=== PATIENT | female | born 1975 | race Caucasian/White ===

== ENCOUNTER 2025-02-08 13:59 | Emergency (ER) | payer BC, SELFPAY ==
[2025-02-08] VITALS (58 sets, daily range): BP systolic 118–174; BP diastolic 77–117; PULSE 60–93; RESP 6–59; TEMP 36.2; O2SAT 90–100; BMI 30.4
--- NOTE | 2025-02-08 14:17 | ED.CHESTPAIN ---
HPI - Chest Pain General Time Seen by Provider: 14:17 Date Seen: 02/08/25 Chief Complaint: Chest Pain Stated Complaint: Chest Pains, Previous RASCON this yr Time Seen by Provider: 02/08/25 14:01 Source: patient and RN notes reviewed Mode of arrival: ambulatory Limitations: no limitations History of Present Illness HPI narrative: This 49-year-old female is coming in with chest discomfort radiating to her jaw. She was shoveling snow this morning and developed a chest pressure feeling, stating it felt like an elephant sitting on her chest. She checked her blood pressure after that, it was elevated at 154/104. She has had a history of an AZ in August and had 2 cardiac stents placed, this was at [facility]. Her symptoms are similar but not as severe as her heart attack. She is not aware if they had any other concerns with other vessels that were stenosis to. She has been on aspirin, did take an 81 mg aspirin this morning. She is still on her anti-platelet agent of Brilinta, has been taking it, no missed doses. She initially told nursing staff she thought the episode started around 11:00 a.m. but in retrospect she notes she texted her daughter who is in OT, this was around 9:30 a.m. this morning. Her symptoms are not as prominent as they were but they are still present. She did have a mild headache this morning, took Tylenol this morning when she got up. She does not smoke. Her medications are reviewed. Her dad from a heart attack at age 45. MD complaint: chest pain, chest heaviness and chest discomfort Related Data Home Medications ?Medication ?Instructions ?Recorded ?Confirmed aspirin 81 mg chewable tablet 81 mg PO DAILY 02/08/25 02/08/25 (Children's Aspirin) famotidine 40 mg tablet 40 mg PO HS 02/08/25 02/08/25 gabapentin 300 mg capsule 300 mg PO DAILY 02/08/25 02/08/25 metoprolol succinate 50 mg 50 mg PO DAILY 02/08/25 02/08/25 tablet,extended release 24 hr rosuvastatin 20 mg tablet (Crestor) 20 mg PO DAILY 02/08/25 02/08/25 ticagrelor 90 mg tablet (Brilinta) 90 mg PO BID 02/08/25 02/08/25 Allergies Allergy/AdvReac Type Severity Reaction Status Date / Time Sulfa (Sulfonamide Allergy Mild rash Verified 02/08/25 14:10 Antibiotics) Review of Systems Status of ROS Reports: 6 or more systems reviewed and unremarkable except as noted in History and below Exam Const Vital Signs, click to edit/add: Vital Signs - 24 hr 02/08/25 14:02 02/08/25 14:30 02/08/25 14:40 Temperature 97.1 F L Pulse Rate Pulse Rate [Pulse Oximeter] 69 Respiratory Rate 16 59 H Blood Pressure Blood Pressure [Right Upper Arm] 163/117 H Pulse Oximetry 98 97 Oxygen Delivery Method Room Air 02/08/25 14:44 02/08/25 14:45 02/08/25 14:48 Temperature Pulse Rate 79 70 93 Pulse Rate [Pulse Oximeter] Respiratory Rate 17 13 16 Blood Pressure 162/111 H 174/116 H Blood Pressure [Right Upper Arm] Pulse Oximetry 99 99 97 Oxygen Delivery Method 02/08/25 14:49 02/08/25 14:50 02/08/25 14:52 Temperature Pulse Rate 93 84 82 Pulse Rate [Pulse Oximeter] Respiratory Rate 15 13 22 Blood Pressure 158/104 H 151/106 H Blood Pressure [Right Upper Arm] Pulse Oximetry 98 98 97 Oxygen Delivery Method 02/08/25 14:53 02/08/25 14:57 02/08/25 15:00 Temperature Pulse Rate 79 73 71 Pulse Rate [Pulse Oximeter] Respiratory Rate 15 14 24 Blood Pressure 145/100 H Blood Pressure [Right Upper Arm] Pulse Oximetry 95 96 95 Oxygen Delivery Method 02/08/25 15:01 02/08/25 15:07 02/08/25 15:09 Temperature Pulse Rate 68 84 82 Pulse Rate [Pulse Oximeter] Respiratory Rate 19 16 19 Blood Pressure 142/94 H 156/111 H 145/102 H Blood Pressure [Right Upper Arm] Pulse Oximetry 95 99 99 Oxygen Delivery Method 02/08/25 15:10 02/08/25 15:12 02/08/25 15:15 Temperature Pulse Rate 81 71 71 Pulse Rate [Pulse Oximeter] Respiratory Rate 23 19 12 Blood Pressure 147/100 H Blood Pressure [Right Upper Arm] Pulse Oximetry 99 98 95 Oxygen Delivery Method 02/08/25 15:17 02/08/25 15:22 02/08/25 15:27 Temperature Pulse Rate 69 64 66 Pulse Rate [Pulse Oximeter] Respiratory Rate 15 9 L 11 L Blood Pressure 143/93 H 154/106 H 144/88 H Blood Pressure [Right Upper Arm] Pulse Oximetry 92 95 90 Oxygen Delivery Method 02/08/25 15:30 02/08/25 15:32 02/08/25 15:33 Temperature Pulse Rate 61 67 62 Pulse Rate [Pulse Oximeter] Respiratory Rate 20 6 L 8 L Blood Pressure 136/94 H Blood Pressure [Right Upper Arm] Pulse Oximetry 91 94 94 Oxygen Delivery Method 02/08/25 15:37 02/08/25 15:42 02/08/25 15:45 Temperature Pulse Rate 62 62 64 Pulse Rate [Pulse Oximeter] Respiratory Rate 9 L 11 L 15 Blood Pressure 138/103 H 128/83 Blood Pressure [Right Upper Arm] Pulse Oximetry 96 95 92 Oxygen Delivery Method 02/08/25 15:47 02/08/25 15:52 02/08/25 15:57 Temperature Pulse Rate 60 66 62 Pulse Rate [Pulse Oximeter] Respiratory Rate 12 11 L Blood Pressure 128/96 H 138/77 157/90 H Blood Pressure [Right Upper Arm] Pulse Oximetry 96 95 98 Oxygen Delivery Method 02/08/25 16:00 02/08/25 16:02 02/08/25 16:03 Temperature Pulse Rate 70 71 66 Pulse Rate [Pulse Oximeter] Respiratory Rate 7 L 15 19 Blood Pressure 150/97 H Blood Pressure [Right Upper Arm] Pulse Oximetry 96 96 97 Oxygen Delivery Method 02/08/25 16:07 02/08/25 16:12 02/08/25 16:18 Temperature Pulse Rate 73 73 Pulse Rate [Pulse Oximeter] Respiratory Rate 11 L 13 17 Blood Pressure 154/97 H 154/96 H Blood Pressure [Right Upper Arm] Pulse Oximetry 97 98 Oxygen Delivery Method 02/08/25 16:20 02/08/25 16:23 02/08/25 16:27 Temperature Pulse Rate 78 Pulse Rate [Pulse Oximeter] Respiratory Rate 20 19 17 Blood Pressure 118/99 H 170/107 H 171/78 H Blood Pressure [Right Upper Arm] Pulse Oximetry 100 Oxygen Delivery Method 02/08/25 16:32 02/08/25 16:37 02/08/25 16:42 Temperature Pulse Rate 73 74 Pulse Rate [Pulse Oximeter] Respiratory Rate 13 12 15 Blood Pressure 151/106 H 161/95 H 155/92 H Blood Pressure [Right Upper Arm] Pulse Oximetry 99 100 Oxygen Delivery Method 02/08/25 16:45 02/08/25 16:47 02/08/25 16:52 Temperature Pulse Rate 74 76 73 Pulse Rate [Pulse Oximeter] Respiratory Rate 19 11 L 17 Blood Pressure 147/105 H 144/115 H Blood Pressure [Right Upper Arm] Pulse Oximetry 98 98 96 Oxygen Delivery Method 02/08/25 16:57 02/08/25 17:00 02/08/25 17:02 Temperature Pulse Rate 74 74 69 Pulse Rate [Pulse Oximeter] Respiratory Rate 29 H 15 13 Blood Pressure 153/101 H 149/92 H Blood Pressure [Right Upper Arm] Pulse Oximetry 97 97 96 Oxygen Delivery Method 02/08/25 17:07 02/08/25 17:12 02/08/25 17:15 Temperature Pulse Rate 71 68 73 Pulse Rate [Pulse Oximeter] Respiratory Rate 16 23 18 Blood Pressure 132/87 139/90 H Blood Pressure [Right Upper Arm] Pulse Oximetry 97 95 95 Oxygen Delivery Method 02/08/25 17:17 02/08/25 17:18 02/08/25 17:22 Temperature Pulse Rate 69 73 79 Pulse Rate [Pulse Oximeter] Respiratory Rate 6 L 11 L 18 Blood Pressure 143/89 H 135/93 H Blood Pressure [Right Upper Arm] Pulse Oximetry 96 97 98 Oxygen Delivery Method 02/08/25 17:28 02/08/25 17:30 02/08/25 17:31 Temperature Pulse Rate 83 86 81 Pulse Rate [Pulse Oximeter] Respiratory Rate 25 H 17 14 Blood Pressure 132/88 137/91 H Blood Pressure [Right Upper Arm] Pulse Oximetry 96 93 96 Oxygen Delivery Method 02/08/25 17:32 Temperature Pulse Rate 88 Pulse Rate [Pulse Oximeter] Respiratory Rate 15 Blood Pressure Blood Pressure [Right Upper Arm] Pulse Oximetry 95 Oxygen Delivery Method This 49-year-old female is alert, interactive, no apparent distress. She is seen in exam room 5, lying in the bed and appears comfortable. Sclera clear, conjugate gaze, symmetrical facial function. Able to speak in complete sentences, no hoarseness. Neck supple, no jugular venous distension, no adenopathy or masses. Lungs are clear, good air entry, no wheezing or crackles, no tachypnea, no accessory muscle use. CV regular rate and rhythm, no murmur, normal S1-S2. Abdomen is soft, nontender, nondistended, no organomegaly, no rebound or guarding. She has no lower extremity edema. Patient was ambulatory into the ED of her own accord. Documenting provider has reviewed patient's vital signs: yes Course Course ED Course: Patient's symptoms are certainly concerning for coronary ischemia. We will get a highly sensitive troponin. If this episode happened around 930 this morning or before, would anticipate that her troponin would be elevated. Will also have nursing staff obtain an EKG, put her on cardiac monitoring and pulse oximetry. Will get appropriate labs which does include the highly sensitive troponin. I am going to give her 243 mg aspirin chewed, she did take 81 mg this morning. Will also try sublingual nitroglycerin to see if it does alleviate the rest of her symptoms. Will look at a portable chest x-ray as well. Reevaluation(s) Time of Reevaluation #1: 14:48 Reevaluation #1: Nursing staff reports after 1 sublingual nitroglycerin, patient feels her chest symptoms are worse. She feels a burning sensation. We are going to hold on subsequent nitroglycerin orally at this time, will have nursing staff cycle a blood pressure to see what happened with her blood pressure with the use of nitroglycerin. Her highly sensitive troponin should be back within minutes, will await this. Time of Reevaluation #2: 15:20 Reevaluation #2: Patient had called nursing staff in, was hyperventilating, stated her vision was starting to go black. Her nurse did try to get her to do some breathing, I did go in and talk to or after. She seems more settled now. We reviewed that her heart enzyme was normal. She did relate to me that after her stents replaced that she was placed on atorvastatin, felt terrible on that and was eventually switched to Crestor. For 2 weeks when she was off the Lipitor, she felt much better. In the last month and a half, she has been noticing chest pain going up stairs, muscle aches, brain fog, lack of energy. She has an appointment next week to see Dr. Thompson to review her symptoms. She also states that her blood pressure this past week has been elevated, systolics of 140s to 150s. They have been eating healthy, not eating out. She does tell me at this time her dad had a stroke before his heart attack. Reviewed with her that this is still vascular, hypertension, cholesterol within the family history can all play into these vascular issues. Did do a lab add on for CK but does not feel clinically like a myositis. We have discussed the extreme importance for her to be on a cholesterol medicine. Did review with her that there are other medicines, possibly even injectables that she might qualify for if she is intolerant to oral statins. I will talk to Cardiology to review her situation. Do wonder if maybe she should be started on losartan for blood pressure control as well. Will review these issues with Cardiology and her current symptoms. Time of Reevaluation #3: 15:57 Reevaluation #3: Have reviewed with patient I discussed with the senior animator. She is still having some chest symptoms, certainly not as bad as this morning or even with her prior AZ. She did not feel the chest discomfort going up stairs as she has last week after the initial angiogram and with side effects from the atorvastatin. Discussed with her recommendations transfer for further evaluation. Would consider this unstable angina. We will initiate ACS heparin and start IV nitroglycerin. It is possible she had some GI side effects with the sublingual nitroglycerin. Hopefully IV nitroglycerin is not going to cause any issues for her but we will continue to monitor. I did of julia Fagan call sherrell in the call center at [facility]. She will be getting the hospitalist on the line for final acceptance. Consultations Consultation #1: Have spoken with Cardiology Dr. Altman. If patient's symptoms are new, have not been ongoing since her stent placement, he would recommend re-evaluation. If she has ongoing chest symptoms, I am to start her on ACS heparin. I will be talking to the patient. He does tentatively accept. I have a direct number for the transfer center to call back. Did bring up her chest pain, her statin questions, her blood pressure issues. 4:[address] have spoken with Dr. Casillas hospitalist at [facility]. He accepts the patient. Time: 15:33 Vital Signs Vital signs: Initial Vital Signs Temperature 97.1 F L 02/08/25 14:02 Temperature Source Temporal Artery Scan 02/08/25 14:02 Pulse Rate 69 02/08/25 14:02 Respiratory Rate 16 02/08/25 14:02 Blood Pressure 163/117 H 02/08/25 14:02 Blood Pressure Mean 132 H 02/08/25 14:02 Blood Pressure Position Sitting 02/08/25 14:02 Pulse Oximetry 98 02/08/25 14:02 Oxygen Delivery Method Room Air 02/08/25 14:02 Vital Signs Temperature 97.1 F L 02/08/25 14:02 Pulse Rate 69 02/08/25 14:02 Respiratory Rate 16 02/08/25 14:02 Blood Pressure 163/117 H 02/08/25 14:02 Pulse Oximetry 98 02/08/25 14:02 Oxygen Delivery Method Room Air 02/08/25 14:02 Temperature 97.1 F L 02/08/25 14:02 Pulse Rate 88 02/08/25 17:32 Respiratory Rate 15 02/08/25 17:32 Blood Pressure 137/91 H 02/08/25 17:31 Pulse Oximetry 95 02/08/25 17:32 Oxygen Delivery Method Room Air 02/08/25 14:02 Medications Administered Medications: Discontinued Medications Generic Name Dose Route Start Last Admin Trade Name Kiq PRN Reason Stop Dose Admin Aspirin 243 mg 02/08/25 14:23 02/08/25 14:40 Aspirin 81 Mg Tab.Chew PO 02/08/25 14:24 243 mg ONCE ONE Administration Heparin Sodium (Porcine) 4,000 unit 02/08/25 15:59 02/08/25 16:32 Heparin 5,000 Unit/0.5 Ml Inj IVP 02/08/25 16:00 4,000 unit ONCE ONE Administration Heparin Sodium/Dextrose 25,000 unit in 500 mls @ 0 mls/hr 02/08/25 16:00 02/08/25 16:31 Heparin IV 950 unit/hr .Q0M PING 19 mls/hr Protocol Administration Per Protocol Nitroglycerin/Dextrose 25,000 mcg in 250 mls @ 3 mls/hr 02/08/25 16:00 02/08/25 17:18 Nitroglycerin/Dextrose IVPB 15 mcg/min .TITRATE PRN 9 mls/hr cp Infusion Protocol 5 MCG/MIN Nitroglycerin 0.4 mg 02/08/25 14:23 02/08/25 14:43 Nitroglycerin 0.4 Mg Tab.Subl SUBLINGUAL 0.4 mg Q5M PRN Administration MDM - Chest Pain Lab Data Attestation: I reviewed the patient's lab results. Labs: Lab Results 02/08/25 02/08/25 02/08/25 Range/Units 14:20 14:24 15:23 WBC 7.08 (4.50-11.00) K/uL RBC 4.62 (4.00-5.20) m/uL Hgb 13.3 (12.0-16.0) gm/dL Hct 41.3 (33.0-51.0) % MCV 89 (80-100) fL MCH 29 (26-34) pg MCHC 32 (32-36) gm/dL RDW Coeff of Christy 12.9 (11.5-15.5) % Plt Count 294 (140-440) K/uL Neut % (Auto) 63.8 (42.0-72.0) % Lymph % (Auto) 29.2 (20-44) % [place] % (Auto) 5.9 (0.0-11.0) % Eos % (Auto) 0.8 (0.0-7.0) % Baso % (Auto) 0.3 (0.0-3.0) % Neut # (Auto) 4.51 (1.7-7.0) K/uL Lymph # (Auto) 2.07 (0.90-2.90) K/uL [place] # (Auto) 0.40 (0.00-0.90) K/UL Eos # (Auto) 0.06 (0.00-0.50) K/uL Baso # (Auto) 0.02 (0.00-0.30) K/uL Abs Immat Gran (auto) 0.00 (0.00-0.30) K/uL Imm/Tot Granulo (auto) 0.0 % Sodium 140 (135-149) mmol/L Potassium 3.9 (3.6-5.1) mmol/L Chloride 101 (96-114) mmol/L Carbon Dioxide 26 (20-32) mmol/L Anion Gap 13 (7-15) mEq/L BUN 10 (5-24) mg/dL Creatinine 0.6 (0.5-1.5) mg/dL Estimated Creat Clear 94.85 Estimated GFR 111 ml/min Glucose 104 (60-115) mg/dL Calcium 10.0 (8.4-10.6) mg/dL Total Bilirubin 0.4 (0.1-1.5) mg/dL AST 22 (12-35) U/L ALT 23 (4-35) U/L Alkaline Phosphatase 87 (40-150) U/L Total Creatine Kinase 46 (41-117) U/L POC Troponin I High Sensi 4.3 (2.9-13.0) pg/mL C-Reactive Protein < 0.5 L (0.5-1.0) mg/dL NT-Pro-B Natriuret Pep 242 (See Note) pg/mL Total Protein 8.7 H (6.0-8.3) g/dL Albumin 5.2 H (3.3-5.0) g/dL Lab Acknowledgement Test Added Imaging Data Chest x-ray: Attestation: I have reviewed the pertinent imaging results. My impression: Have reviewed her chest x-ray, no acute pathology on my preliminary review. Radiologist's impression: Patient: SILVERIO COLLAZO Facility:?[facility] Patient ID:?[id number] Site Patient ID:?[id number]. Site :?[id number] Study:?XRay-Chest PORTABLE-02/08/2025 2:32:04 PM Ordering Physician:Mai Haskisn Final Report: INDICATION: Chest pain. Stents placed this summer. TECHNIQUE: Chest portable AP. Findings : The cardiomediastinal silhouette, lung parenchyma, pulmonary vasculature and pleural surfaces are all normal in appearance. The bony thorax appears intact. IMPRESSION: Negative study. Dictated by Timothy Chris MD @ 02/08/2025 2:51:17 PM (Electronic Signature) ECG Data Attestation: I personally reviewed and interpreted this ECG as follows: (Normal sinus rhythm, rate 65 beats per minute. No evidence infarct it or ischemia. QT corrected 399 milliseconds.) ECG interpretation date: 02/08/25 ECG interpretation time: 14:19 Prior ECG tracings: not available for review Discharge Plan Discharge Clinical Impression: Chest pain, Unstable angina pectoris Patient Disposition: Xfer [facility] Discharge Location: [facility] Prescriptions: No Action gabapentin 300 mg capsule 300 mg PO DAILY rosuvastatin [Crestor] 20 mg tablet 20 mg PO DAILY metoprolol succinate 50 mg tablet extended release 24 hr 50 mg PO DAILY famotidine 40 mg tablet 40 mg PO HS aspirin [Children's Aspirin] 81 mg tablet,chewable 81 mg PO DAILY ticagrelor [Brilinta] 90 mg tablet 90 mg PO BID Stand Alone Forms: [facility] Info Instructions
--- NOTE | 2025-02-08 14:23 | CRLHL7_ITS ---
For Patients: As a result of the Cures Act, medical imaging exams and procedure reports are released immediately into your electronic medical record. You may view this report before your referring provider. If you have questions, please contact your health care provider. INDICATION: Chest pain. Stents placed this summer. TECHNIQUE: Chest portable AP. Findings : The cardiomediastinal silhouette, lung parenchyma, pulmonary vasculature and pleural surfaces are all normal in appearance. The bony thorax appears intact. IMPRESSION: Negative study. Dictated by Timothy Chris MD @ 02/08/2025 2:51:17 PM (Electronically Signed)
[2025-02-08 14:32] LABS: Hematocrit* 41.3 % (33.0-51.0); Hemoglobin* 13.3 gm/dL (12.0-16.0); Immature Granulocytes Abs Auto 0.00 K/uL (0.00-0.30); Immature Granulocytes Pct Auto 0.0 %; Lymphocytes Absolute Auto 2.07 K/uL (0.90-2.90); Mean Corpuscular HGB Conc 32 gm/dL (32-36); Mean Corpuscular Hemoglobin 29 pg (26-34); Mean Corpuscular Volume 89 fL (80-100); RDW Coefficient of Variation % 12.9 % (11.5-15.5); Red Blood Count* 4.62 m/uL (4.00-5.20); White Blood Count* 7.08 K/uL (4.50-11.00)
[2025-02-08 14:33] LABS: Slide Review Reflex No
[2025-02-08] MEDS: ASPIRIN 81 MG TAB.CHEW 243 MG PO (14:40)
[2025-02-08] MEDS: NITROGLYCERIN 0.4 MG TAB.SUBL SUBLINGUAL (14:43)
[2025-02-08 14:45] LABS: Albumin* 5.2 g/dL (3.3-5.0); Chloride* 101 mmol/L (96-114); Sodium* 140 mmol/L (135-149)
[2025-02-08 14:46] LABS: Potassium* 3.9 mmol/L (3.6-5.1)
[2025-02-08 14:48] LABS: Alanine Aminotransferase* 23 U/L (4-35); Alkaline Phosphatase* 87 U/L (40-150); Anion Gap 13 mEq/L (7-15); Aspartate Amino Transferase* 22 U/L (12-35); Bilirubin Total* 0.4 mg/dL (0.1-1.5); Blood Urea Nitrogen* 10 mg/dL (5-24); Carbon Dioxide* 26 mmol/L (20-32); Creatinine* 0.6 mg/dL (0.5-1.5); Est. Creatinine Clearance* 94.85; Estimated Glomerular Filt Rate 111 ml/min; Total Protein* 8.7 g/dL (6.0-8.3)
[2025-02-08 14:49] LABS: Calcium* 10.0 mg/dL (8.4-10.6); Glucose* 104 mg/dL (60-115)
--- OUTSIDE RECORDS SUMMARY | 2025-02-08 14:50 | XMS_ITS | Clinical Summary ---
Author Organization [email or web address] Address [address] [place] [id number] Care Team Providers Care Party Plan Sales Unit Sales Leader Name Role Phone Vee Thompson Primary Care Provider [phone] Allergies Active Allergy Reactions Criticality Noted Date Comments Sulfa (Sulfonamide Antibiotics) Rash 10/04 Medications aspirin chewable 81 mg tabletIndications :NSTEMI (non-ST elevated myocardial infarction) (HC) Take 1 Tablet (81 mg) by mouth or nasogastric tube once daily. 90 Tablet 08/15/2024 9:40 AM CDT 5 Active ticagrelor 90 mg tabletIndications :NSTEMI (non-ST elevated myocardial infarction) (HC) Take 1 Tablet (90 mg) by mouth two times daily. 60 Tablet 11 08/15/2024 9:40 AM CDT 5 Active nitroglycerin 0.4 mg sublingual tabletIndications :NSTEMI (non-ST elevated myocardial infarction) (HC) Place 1 Tablet (0.4 mg) under the tongue every 5 minutes if needed for Chest pain 1st choice (Hold if SBP less than 90 mmHg). Up to 3 tablets in 15 minutes. 25 Tablet 08/15/2024 9:40 AM CDT 5 Active famotidine (PEPCID) 40 mg tabletIndications :Gastroesophageal reflux disease, unspecified whether esophagitis present Take 1 Tablet (40 mg) by mouth at bedtime. 90 Tablet 1 5 Active metoprolol succinate (TOPROL XL) 50 mg sustained-release tabletIndications :NSTEMI (non-ST elevated myocardial infarction) (HC) Take 1 Tablet (50 mg) by mouth once daily. 90 Tablet 3 5 Active oxyCODONE (ROXICODONE) 5 mg immediate release tabletIndications :Neck pain, acute Take 1-2 Tablets (5-10 mg) by mouth every 6 hours if needed for Pain. 30 Tablet 5 Active rosuvastatin (CRESTOR) 20 mg tabletIndications :Hyperlipidemia LDL goal <55 Take 1 Tablet (20 mg) by mouth at bedtime. 90 Tablet 3 5 Active gabapentin (NEURONTIN) 300 mg capsuleIndication s:Cervical radiculopathy Take 1 Capsule (300 mg) by mouth three times daily. 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 Endometriosis 02/19/2015 Ileus, postoperative Resolved Problems Problem Noted Date Diagnosed Date Resolved Date Vaginal delivery 03/04/2017 03/05/2017 Encounters Date Type Department Care Team Description 02/04/2025 12:36 PM FRETTED INSTRUMENT REPAIRER - 02/04/2025 11:59 PM FRETTED INSTRUMENT REPAIRER Hospital Encounter [facility] [address] [address] Keshawn Doyle MD Iverson, Ryan, PT Cervical radiculopathy; Bulge of cervical disc without myelopathy 02/04/2025 Travel 01/16/2025 Orders Only [facility] Surgery [facility] [address] [facility] [address] [place] [phone] Gerardo Freeman DO <No scans attached> 01/08/2025 9:05 AM FRETTED INSTRUMENT REPAIRER Office Visit [facility] [address] [place] [phone] Ksehawn Doyle MD Consult (Neck/Left Arm/Shoulder Pain) 01/08/2025 Telephone [facility] [address] [place] [address] Ben Mcclain MD 01/08/2025 Telephone [facility] Medical Imaging [address] [place] [address] [address] [place] [address] Gerardo Freeman DO Screening (Injection Prescreening ) 01/08/2025 Travel 01/05/2025 Telephone [facility] [address] [facility] [address] [place] [address] Therese Subramanian PA Follow Up (Pt update since holding statin) 01/03/2025 Travel 01/01/2025 12:47 PM CDT - 01/01/2025 11:59 PM CDT Hospital Encounter [facility] [address] [place] [address] Twan Sarkar MD Neck pain, acute 01/01/2025 Travel 12/25/2024 Patient Outreach [facility] Care Management - Advanced Care Team [address] [place] [address] Elif Hua Complex Care Management (CCM engagement outreach due to Internal Case Finding/ED 12/12/) 12/22/2024 2:30 PM CDT Office Visit [facility] [address] [facility] [address] [place] [address] Therese Subramanian PA Follow Up (EST PT; 3 MO F/U, LABS NEEDED PRIOR, DX: NSTEMI, CAD, ADDISON, HLD PT states feeling ok, no cardiac symptoms today.She has been feeling achy and dizziness recently possibly from her medication. Her BP has been high as well, and wants to ask about playing sports. ) 12/22/2024 2:00 PM CDT Orders Only [facility] [address] [place] [address] [place] [address] <No scans attached> 12/22/2024 Travel 12/15/2024 9:50 AM CDT Office Visit [facility] [address] [place] [address] Twan Sarkar MD Pinched Nerve (Left Shoulder) 12/14/2024 Travel 12/14/2024 Telephone [facility] Emergency Professional Services [address] [place] [address] Rob Da Silva MD Screening (Spine Clinic); Referral (STAT Review) 12/12/2024 8:34 PM CDT - 12/12/2024 9:29 PM CDT Emergency [facility] [address] [place] [address] Rob Da Silva MD Cervical radiculopathy (Primary Dx) Discharge Disposition: Home Self Care 12/12/2024 Travel from Last 3 Months Immunizations Immunization Administration Dates Next Due Influenza Virus, Unspecified 01/25/2005 Family History Medical History Relation Name Comments Coronary artery disease Father Stroke Father Good Health Mother Relation Name Status Comments Father Mother Alive Social History Tobacco Use Types Packs/Day Years Used Date Smoking Tobacco: Never Passive Smoke Exposure: Never Smokeless Tobacco: Never Tobacco Cessation:Counseling Given: Not Answered Alcohol Use Standard Drinks/Week Comments Not Currently 0 (1 standard drink = 0.6 oz pur e alcohol) PHQ-2 Answer Date Recorded PHQ-2 TOTAL SCORE 1 09/22/2024 Social Connections Answer Date Recorded Do you often feel lonely or isolated from those around you? 0 08/13/2024 Alcohol Use Answer Date Recorded How often do you have a drink containing alcohol ? 2 01/08/2025 How many drinks containing a lcohol do you have on a typical day when you are drinking? 0 01/08/2025 How often do you have five or more drinks on one occasion? 0 01/08/2025 Financial Resource Strain Answer Date R ecorded Difficulty of Paying Living Expenses 3 08/13/2024 Difficulty of Paying Living Expenses Not on file 08/13/2024 Food Insecurity Answer Date Recorded Do you worry your food will run out before you are able to buy more? 1 08/13/2024 Transportation Needs Answer Date Record ed Does lack of transportation keep you from medica l appointments? 1 08/13/2024 Does lack of transportation keep you from work, meetings or getting things that you need? 1 08/13/2024 Housing Stability Answer Date Recorded What is your housing situation today? 1 08/13/2024 Interpersonal Safety Answer Date Record ed Are you being hit, kicked, p ushed or yelled at (see row info)? No 12/12/2024 Interpersonal Safety Abuse 12 - 18 Not on file 12/12/2024 Interpersonal Safety Ambulatory Vulnerability No t on file 12/12/2024 Utilities Answer Date Recorded Do you have trouble paying f or utilities (for example, heat, electricity, water, phone)? 1 08/13/2024 Comments No Sex and Gender Information Value Date Recorded Sex Assigned at Not on file Legal Sex Female 5:40 AM FRETTED INSTRUMENT REPAIRER Gender Identity Not on file Sexual Orientation Not on file Obstetrics History Para Term AB IAB SAB Ectopic Multiple Livin g Live Births 2 2 Date Outcome GA Total Labor Labor/2nd/3rd Weight Sex Type Anes PTL Bina A1 A5 Name Clin Last Filed Vital Signs Vital Sign Reading Time Taken Comments Blood Pressure 113/79 01/08/2025 9:02 AM FRETTED INSTRUMENT REPAIRER Pulse 77 01/08/2025 9:02 AM FRETTED INSTRUMENT REPAIRER Temperature 36.6 C (97.8 F) 12/12/2024 8:25 PM CDT Respiratory Rate 16 12/12/2024 8:25 PM CDT Oxygen Saturation 97% 12/22/2024 2:21 PM CDT Inhaled Oxygen Concentration - - Weight 75.3 kg (166 lb) 01/08/2025 9:02 AM FRETTED INSTRUMENT REPAIRER Height 160 cm (5' 2.99) 01/08/2025 9:02 AM FRETTED INSTRUMENT REPAIRER Body Mass Index 29.41 01/08/2025 9:02 AM FRETTED INSTRUMENT REPAIRER Plan of Treatment Upcoming Encounters Date Type Department Care Team (Late st Contact Info) Description 02/10/2025 1:00 PM FRETTED INSTRUMENT REPAIRER Appointment [address] [address] Noe Manzo, PT [address] [place] [address] 02/12/2025 12:50 PM FRETTED INSTRUMENT REPAIRER Office Visit [facility] [address] [place] [address] Vee Thompson PA [address] [place] [address] 02/17/2025 1:00 PM FRETTED INSTRUMENT REPAIRER Appointment [address] [address] Katherine Sanchez, DIELECTRIC TESTING MACHINE OPERATOR [address] [place] [address] 02/19/2025 10:00 AM FRETTED INSTRUMENT REPAIRER Office Visit [facility] [address] [phone] Keshawn Doyle MD [address] [place] [address] 02/24/2025 1:00 PM FRETTED INSTRUMENT REPAIRER Appointment [address] [address] Noe Manzo, PT [address] [place] [address] Health Maintenance Due Date Last Done Comments Tetanus booster 08/06/1987 HIV for age 15-65 08/06/1991 Hepatitis C screening for ag e 18-79 1994 Hepatitis B series for 19+ ( 1 of 3 - 19+ 3-dose series) 08/06/1995 Pneumococcal series for age 6-49 (1 of 2 - PCV) 08/06/1995 COVID-19 vaccine series (2024- season) 2024 Influenza Vaccine (#1) 2024 01/25/2005 Mammogram for age 45-75 02/25/2025 02/26/20, 04/15/2021, 12/01/2017 Depression screening for age 12+ 09/22/2025 09/22/2024, 08/22/2024, 05/05/2021, Additional history exists BMI (ht and wt on same day) for age 18+ 01/08/2026 01/08/2025, 12/22/2024, 12/15/2024, Additional history exists Fecal testing sDNA-FIT (Cologuard) for age 45-75 11/04/2027 11/03/2024 Lipids for age 45-75 12/22/2029 12/22/2024, 11/10/19 17 RSV vaccine for adults or (1 - 1-dose 75+ series) 08/06/2051 Pap test for age 21-65 Discontinued 12/01/2016, 2016 Procedures Procedure Name Priority Date/Time Associated Diagnosis Comments MR SPINE CERVICAL WO Routine 01/01/2025 1:16 PM CDT Neck pain, acute LIPID PANEL Routine 12/22/2024 1:55 PM CDT Coronary artery disease, unspecified vessel or lesion type, unspecified whether angina present, unspecified whether [place] or transplanted heart SDNA-FIT EXTERNAL (COLOGUARD) Routine 11/03/2024 3:40 PM CDT Screening for colorectal cancer XR MAMMO KEVIN BILAT SCREEN Routine 02/26/2024 8:55 AM FRETTED INSTRUMENT REPAIRER Encounter for other screening for malignant neoplasm of breast RETURN TO VENDOR THIN PREP PAP SCREEN IMAGED Routine 12/01/2016 11:12 AM CDT Pap smear for cervical cancer screening from Last 3 Months or Most Recently Relevant to Health Maintenance Results * MR SPINE CERVICAL WO (01/01/2025 1:16 PM CDT) Anatomical Region Laterality Modality Spine, CERVICAL SPINE Magnetic R esonance 01/01/2025 3:53 PM CDT Impressions 01/01/2025 3:53 PM CDT 1. Straightening of the normal cervical lordosis. Otherwise normal alignment. No fractures 2. Normal cord signal 3. At C6-7, disc degeneration broad-based disc osteophyte complex. Mild narrowing of the spinal canal. Moderate to severe narrowing of the left neural foramen. Potential impingement of the left C7 nerve root 4. No spinal canal or neural foraminal narrowing at the remaining levels Dictated by Kelechi Golden MD @ 01/01/2025 3:53:59 PM (Electronically Signed) Narrative 01/01/2025 3:53 PM CDT For Patients: As a result of the Cures Act, medical imaging exams and procedure reports are released immediately into your electronic medical record. You may view this report before your referring provider. If you have questions, please contact your health care provider. INDICATION: Neck pain. COMPARISON: None. TECHNIQUE: Sagittal T1, T2, and STIR sequences. Axial T2/gradient sequences. FINDINGS: Straightening of the normal cervical lordosis which may be secondary to muscle spasm or patient positioning. Otherwise, normal vertebral body facet alignment. No fractures. No vertebral body loss of height. No spondylolisthesis. No ligamentous injury. No suspicious osseous lesions. Normal cord signal. No intradural mass or lesion. C1-2: No spinal canal narrowing. C2-3: No spinal canal or neural foraminal narrowing. C3-4: Mild disc degeneration. No narrowing of spinal canal. No neural foraminal narrowing. C4-5: Mild disc degeneration posterior disc bulge. No narrowing of the spinal canal. No neural foraminal narrowing. C5-6: Disc degeneration. No narrowing of spinal canal. No neural foraminal narrowing. C6-7: Disc degeneration and broad-based disc osteophyte complex. Effacement of the ventral thecal sac and mild narrowing of spinal canal. Moderate severe narrowing of the left neural foramen. No narrowing of the right neural foramen. Potential impingement of the left C7 nerve root. C7-T1: No spinal canal or neural foraminal narrowing. No spinal canal or neural foraminal narrowing in the visualized thoracic spine. Procedure Note Kelechi Golden MD, PhD - 01/01/2025 For Patients: As a result of the Century Cures Act, medical imagingexams and procedure reports are released immediately into your electronicmedical record. You may view this report before your referring provider.If you have questions, please contact your health care provider. INDICATION: Neck pain. COMPARISON: None. TECHNIQUE: Sagittal T1, T2, and STIR sequences. Axial T2/gradient sequences. FINDINGS: Straightening of the normal cervical lordosis which may be secondary tomuscle spasm or patient positioning. Otherwise, normal vertebral bodyfacet alignment. No fractures. No vertebral body loss of height. Nospondylolisthesis. No ligamentous injury. No suspicious osseous lesions. Normal cord signal. No intradural mass or lesion. C1-2: No spinal canal narrowing. C2-3: No spinal canal or neural foraminal narrowing. C3-4: Mild disc degeneration. No narrowing of spinal canal. No neuralforaminal narrowing. C4-5: Mild disc degeneration posterior disc bulge. No narrowing of thespinal canal. No neural foraminal narrowing. C5-6: Disc degeneration. No narrowing of spinal canal. No neural foraminalnarrowing. C6-7: Disc degeneration and broad-based disc osteophyte complex.Effacement of the ventral thecal sac and mild narrowing of spinal canal.Moderate severe narrowing of the left neural foramen. No narrowing of theright neural foramen. Potential impingement of the left C7 nerve root. C7-T1: No spinal canal or neural foraminal narrowing. No spinal canal or neural foraminal narrowing in the visualized thoracicspine. IMPRESSION: 1. Straightening of the normal cervical lordosis. Otherwise normalalignment. No fractures 2. Normal cord signal 3. At C6-7, disc degeneration broad-based disc osteophyte complex. Mildnarrowing of the spinal canal. Moderate to severe narrowing of the leftneural foramen. Potential impingement of the left C7 nerve root 4. No spinal canal or neural foraminal narrowing at the remaining levels Dictated by Kelechi Golden MD @ 01/01/2025 3:53:59 PM (Electronically Signed) us Twan Sarkar MD MR Final Resul t * LIPID PANEL (12/22/2024 1:55 PM CDT) CHOLESTEROL, TOTAL 141 <200 mg/dL 12/23/2024 4:53 AM CDT [facility] TRIGLYCERIDES 138 <150 mg/dL 12/23/2024 4:53 AM CDT [facility] HDL CHOLESTEROL 56 > OR = 50 mg/dL 12/23/2024 4:53 AM CDT [facility] NON HDL CHOLESTEROL 85 <130 mg/dL (calc) 12/23/2024 4:53 AM CDT [facility] Comment: For patients with diabetes plus 1 major ASCVD risk factor, treating to a non-HDL-C goal of <100 mg/dL (LDL-C of <70 mg/dL) is considered a therapeutic option. CHOL/HDLC RATIO 2.5 <5.0 (calc) 12/23/2024 4:53 AM CDT [facility] LDL-CHOLESTEROL 63 mg/dL (calc) 12/23/2024 4:53 AM CDT [facility] Comment: Reference range: <100 Desirable range <100 mg/dL for primary prevention; <70 mg/dL for patients with CHD or diabetic patients with > or = 2 CHD risk factors. LDL-C is now calculated using the Roseline calculation, which is a validated novel method providing better accuracy than the Friedewald equation in the estimation of LDL-C. Simón SS et al. FAVIAN. 2013;310(19): 3921-5719 (http://education.studdex.Ulmart/faq/KFM833) Blood BLOOD SPECIMEN / Unknown [facility] / Unknown 12/22/2024 1:55 PM CDT 12/22/2024 1:58 PM CDT Narrative [facility] - 12/23/2024 4:53 AM CDT FASTING:NO FASTING: NO Therese DIAS CHEMISTRY Final Result [facility] [address] [place] [address], * SDNA-FIT EXTERNAL (COLOGUARD) [[id number]] (11/03/2024 3:40 PM CDT) NONINV COLON CA DNA+OCC BLD SCRN STL-IMP Negative Negative 11/08/2024 12:39 AM CDT [facility] (CLIA #:[id number]) Comment: The Cologuard (TM) test was performed on this specimen. NEGATIVE TEST RESULT. A negative Cologuard result indicates a low likelihood that a colorectal cancer (CRC) or advanced adenoma (adenomatous polyps with more advanced pre-malignant features) is present. The chance that a person with a negative Cologuard test has a colorectal cancer is less than 1 in 1500 (negative predictive value >99.9%) or has an advanced adenoma is less than 5.3% (negative predictive value 94.7%). These data are based on a prospective cross-sectional study of 10,000 individuals at average risk for colorectal cancer who were screened with both Cologuard and colonoscopy. (Alexey Sanchez al, N Engl J Med 2014;370(14):1286- 1297) The normal value (reference range) for this assay is negative. COLOGUARD RE-SCREENING RECOMMENDATION: Periodic colorectal cancer screening is an important part of preventive healthcare for asymptomatic individuals at average risk for colorectal cancer. Following a negative Cologuard result, the [place] [employer] Society and U.S. Multi-Society Task Force screening guidelines recommend a Cologuard re-screening interval of 3 years. References: [place] [employer] Guideline for Colorectal Cancer Screening: https://www.cancer.org/cancer/hpqiq-zkizbh-omgttv/cdivffbvt-ifvluozwr-myyfkzj/ac s-rec ommendations.html.; Tha DK, Jaclyn CR, Michelle JuniorK, Colorectal Cancer Screening: Recommendations for Physicians and Patients from the U.S. Multi-Society Task Force on Colorectal Cancer Screening , Am J Gastroenterology 2017; 112:5501-1139. TEST DESCRIPTION: Composite algorithmic analysis of stool DNA-biomarkers with hemoglobin immunoassay. Quantitative values of individual biomarkers are not reportable and are not associated with individual biomarker result reference ranges. Cologuard is intended for colorectal cancer screening of adults of either sex, 45 years or older, who are at average-risk for colorectal cancer (CRC). Cologuard has been approved for use by the U.S. FDA. The performance of Cologuard was established in a cross sectional study of average-risk adults aged 50-84. Cologuard performance in patients ages 45 to 49 years was estimated by sub-group analysis of near-age groups. Colonoscopies performed for a positive result may find as the most clinically significant lesion: colorectal cancer [4.0%], advanced adenoma (including sessile serrated polyps greater than or equal to 1cm diameter) [20%] or non- advanced adenoma [31%]; or no colorectal neoplasia [45%]. These estimates are derived from a prospective cross-sectional screening study of 10,000 individuals at average risk for colorectal cancer who were screened with both Cologuard and colonoscopy. (Alexey Snachez al, N Engl J Med 2014;370(14):4982-1910.) Cologuard may produce a false negative or false positive result (no colorectal cancer or precancerous polyp present at colonoscopy follow up). A negative Cologuard test result does not guarantee the absence of CRC or advanced adenoma (pre-cancer). The current Cologuard screening interval is every 3 years. ([place] [employer] Society and U.S. Multi-Society Task Force). Cologuard performance data in a 10,000 patient pivotal study using colonoscopy as the reference method can be accessed at the following location: www.[employer]/results. Additional description of the Cologuard test process, warnings and precautions can be found at www.PhilSmilerd.Ulmart. Stool specimen (specimen) (Rectum) 11/03/2024 3:40 PM CDT 11/05/2024 12:58 PM CDT Cheyenne Hensley NP URINE Final Result [facility] (CLIA #:[id number]) [address] [place] [address], * XR MAMMO KEVIN BILAT SCREEN (02/26/2024 8:55 AM FRETTED INSTRUMENT REPAIRER) Anatomical Region Laterality Modality BREASTS, Breast Left, Breast Right Bilateral Mammography Impressions 02/26/2024 9:15 AM FRETTED INSTRUMENT REPAIRER There is no radiographic evidence for malignancy. Recommend annual mammograms. MAMMOGRAM ASSESSMENT: ACR 1 Negative PATIENTS: You will also receive a letter with your examination results in an easy to read format. If you have questions about your results, please contact your referring provider. Narrative 02/26/2024 9:15 AM FRETTED INSTRUMENT REPAIRER For Patients: As a result of the Century Cures Act, medical imaging exams and procedure reports are released immediately into your electronic medical record. You may view this report before your referring provider. If you have questions, please contact your health care provider. XR MAMMO KEVIN BILAT SCREEN [[id number]] CLINICAL HISTORY: This is an asymptomatic 48 y.o. patient. INDICATION FOR EXAM: Mammogram Screening. TECHNIQUE: CC & MLO views were obtained. This study was evaluated with the assistance of Computer-Aided Detection. Breast Tomosynthesis was used in interpretation. COMPARISON FILM: Yes 04/15/21 [employer] FINDINGS: There are scattered areas of fibroglandular density. There are no dominant masses, suspicious micro calcifications or areas of architectural distortion. Cheyenne Hensley NP MAMMO Final Result * RETURN TO VENDOR THIN PREP PAP SCREEN IMAGED (12/01/2016 11:12 AM CDT) Case Report Gynecologic Cytology Report Case: [id number] Authorizing Provider: Cheyenne Hensley NP Collected: 12/01/2016 1112 Ordering Location: [facility] Received: 12/01/2016 1112 Clinic First Screen: Dee Colon Rescreen: Sharon Bustos Specimen: RETURN TO VENDOR ThinPrep Vial Screening, Cervical 12/07/2016 7:58 AM CDT [facility] INTERPRETATION/ RESULT NEGATIVE FOR INTRAEPITHELIAL LESION OR MALIGNANCY (NIL) (none) 12/07/2016 7:58 AM CDT [facility] at 0758 CDT SPECIMEN ADEQUACY Satisfactory for evaluation No endocervical component seen 12/07/2016 7:58 AM CDT [facility] HPV REQUEST HPV if ASCUS 12/07/2016 7:58 AM CDT [facility] Date of LMP 11/03/2016 12/07/2016 7:58 AM CDT [facility] Last Pap Date 11/09/16 12/07/2016 7:58 AM CDT [facility] Last Pap Result UNS 7 7:58 AM CDT [facility] Abnormal Pap or Basehor Bx in last 5 years Yes 12/07/2016 7:58 AM CDT [facility] Menstrual Status Regular Periods 12/07/2016 7:58 AM CDT [facility] Basehor Bx Done Today No 12/07/2016 7:58 AM CDT [facility] Additional Information None given 12/07/2016 7:58 AM CDT [facility] Automated Review Successful 12/07/2016 7:58 AM CDT [facility] Comment:Specimen processed s uccessfully by automated art installer device, [employer] System, [employer] Note The pap test is a screening technique, not a diagnostic procedure. It is used primarily to screen for squamous cancers and precursor lesions. Published studies have shown that it is subject to both false negative and false positive results. The pap test should not be used as the sole means to diagnose or exclude pre-malignant and malignant lesions. Interpreted at [facility] ([facility], [facility], [facility], [facility], [facility], [facility], [facility]) 12/07/2016 7:58 AM CDT [facility] Other (Cervical) 12/01/2016 11:12 AM CDT 12/01/2016 11:12 AM CDT us Cheyenne Hensley NP PATHOLOGY/CYTOLOGY Final Res ult [facility] [address] [place] [address], [place] from Last 3 Months or Most Recently Relevant to Health Maintenance Insurance [facility] Advance Directives * Full Code (Latest Code Status on File) Date Activated Date Inactivated Comments 08/19/2024 4:18 PM 08/20/2024 1:33 PM Question Answer Comments Code Status Discussion: Reviewed Preferences * Full Code Date Activated Date Inactivated Comments 08/13/2024 3:57 PM 08/15/2024 2:41 PM Question Answer Comments Code Status Discussion: Reviewed Preferences * Full Code Date Activated Date Inactivated Comments 03/01/2017 4:41 AM 03/06/2017 3:33 PM * Full Code Date Activated Date Inactivated Comments 02/19/2017 12:37 PM 02/19/2017 9:41 PM * Full Code Date Activated Date Inactivated Comments 03/19/2015 1:36 PM 03/19/2015 6:30 PM Care Teams Party Plan Sales Unit Sales Leader Relationship Specialty Start Date End Date Vee Thompson PA [address] [place] [address] 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
[2025-02-08 15:10] LABS: NT Pro B Type NatriureticPept* 242 pg/mL (See Note)
[2025-02-08 16:23] LABS: Creatine Kinase* 46 U/L (41-117)
[2025-02-08] MEDS: HEPARIN 25,000 UNIT/500 ML BAG 19 UNIT IV (16:31)
[2025-02-08] MEDS: HEPARIN 5,000 UNIT/0.5 ML INJ 4000 UNIT IVP (16:32)
[2025-02-08] MEDS: NITROGLYCERIN/DEXTROSE 25,000 MCG/250 ML BOTTLE 3 MCG IVPB (16:33)
== END 2025-02-08 17:51 | disposition short-term general hospital (02) ==
PROVIDERS: Emergency Provider Family Medicine
DX: R07.89 Other chest pain (principal); I20.0 Unstable angina; Z79.82 Long term (current) use of aspirin
CPT/HCPCS: 36415; 71045; 80053; 82550; 83880; 84484; 85025; 86140; 93005; 94761; 96374; 99285; A9270; J1644

== ENCOUNTER 2025-02-08 17:30 | Outpatient (CLI) | payer BC, SELFPAY | END 2025-02-08 17:31 | disposition home or self-care (01) | LOC: AMB 02-10 11:23 | PROVIDERS: Visit Provider Emergency Medicine Emergency Medical Services | DX: R07.89 Other chest pain (principal); I20.0 Unstable angina | CPT/HCPCS: A0425; A0427 ==